=== PATIENT | male | born 1925 | race Caucasian/White ===

== ENCOUNTER → 2016-05-03 | Outpatient (CLI) | payer MEDICARE ==
[~2016-05-03] MED LIST: AMOXIL (BID DO875 MG PO; ASPIRIN LO-DOSE81 MG PO; CEFTIN500 MG PO; COLACE100 MG PO; COLON HELPER PO; COREG6.25 MG PO; COUMADIN ** IA5 MG PO; DELTASONE20 MG PO; FUROSEMIDE20 MG PO; K-TAB 10MEQ10 MEQ PO; NITROSTAT0.4 MG PO; PERCOCET 5-3251 EACH PO; PRESERVISION A1 EACH PO; SENOKOT S (S1 TABLET PO; SPIRIVA HANDIHA1 KIT INH; SYMBICORT 16010.2 GM INH; TYLENOL325 MG PO; ZOCOR20 MG PO
--- NOTE | ~2016-05-03 | PUL ---
PATIENT'S NAME: TERE ORTIZ [facility] AGE: 89 Y [address] ROOM: [place] [address] LOCATION: [facility] ADMIT DATE: 05/03/2016 Pulmonary DISCHARGE DATE: FAMILY PHYSICIAN: PHYSICIAN, NO ATTENDING PHYSICIAN: FRANNIE CANALES NAME OF PROCEDURE: Sleep study DATE OF PROCEDURE: 05/03/16 TECH: PAT Gore TEST #: [facility]# [id number] MEDICAL HISTORY: The patient is an 89-year-old gentleman with daytime sleepiness and snoring. SLEEP STAGE SUMMARY: The patient was studied for 513 minutes of which he slept 353 minutes. He fell asleep in 3 minutes and slept for 68% of the night. Sleep architecture revealed a decline in slow wave sleep. RESPIRATORY SUMMARY: Oxygen saturations ranged from 65-94%. Prior to initiating CPAP there were 84 hypopneas, no apneas for an apnea/hypopnea index elevated at 35 events per hour. CPAP was initiated and titrated to 12 cm with good control of the respiratory events. EKG SUMMARY: No dysrhythmias were noted. LIMB MOVEMENT SUMMARY: Occasional periodic limb movements were noted. These do not appear to be clinically relevant as they resolved with control of the sleep apnea. ASSESSMENT: Obstructive sleep apnea responsive to CPAP at 12 cm. PLAN: Suggest CPAP at 12 cm. Patient will receive results from the ordering provider. MD MAKAYLA HOGAN/ PATIENT'S NAME: TERE ORTIZ [facility] AGE: 89 Y [address] ROOM: [place] [id number] LOCATION: [facility] ADMIT DATE: 05/03/2016 Pulmonary DISCHARGE DATE: FAMILY PHYSICIAN: PHYSICIAN, NO ATTENDING PHYSICIAN: FRANNIE CANALES /[id number] dtt: 05/22/16 1017 , Yunior Rodriguez dtd: 05/05/16 1318
== END | disposition disaster alternative care site (69) ==
LOC: GSLP 19:48
DX: G47.10 Hypersomnia, unspecified (principal); G47.33 Obstructive sleep apnea (adult) (pediatric)

== ENCOUNTER → 2016-05-13 | Outpatient (CLI) | payer MEDICARE ==
--- NOTE | ~2016-05-13 | PUL ---
PATIENT'S NAME: TERE ORTIZ [facility] AGE: 89 Y [address] ROOM: [place] [address] LOCATION: [facility] ADMIT DATE: 05/13/2016 Pulmonary DISCHARGE DATE: FAMILY PHYSICIAN: PHYSICIAN, NO ATTENDING PHYSICIAN: FRANNIE CANALES NAME OF PROCEDURE: Pulmonary Function Test DATE OF PROCEDURE: May 13, 2016 TECH: ATripe, [employer] REASON FOR EXAM: Asthma RESULTS: 1. FVC was 1.91 liters which is 58% of predicted and low, FEV1 was 1.07 liters which is 48% of predicted and low, and FEV1/FVC was 56% and low. The flow volume curve revealed significant airflow limitation. After bronchodilator administration FVC increased to 2.36 liters which is a 23% increase and FEV1 increased to 1.22 liters which is a 14% increase. FEV1/FVC was 52%. 2. DLCO was 10.5 with an adjusted DLCO of 11 which is 60% of predicted and normal. 3. Total lung capacity was 5.29 liters which is 92% of predicted and normal, and residual volume was 3.37 liters which is 124% of predicted and normal. PHYSICIAN INTERPRETATION: The patient has severe airflow limitation with a significant bronchodilator response. His diffusion capacity is normal. There is no evidence of restrictive lung disease. MD BRIDGET MORE/lillian /[id number] dtt: 05/18/16 0915 , FRANNIE CANALES dtd: 05/14/16 1405
== END | disposition disaster alternative care site (69) ==
LOC: GRTH 12:33
DX: J45.909 Unspecified asthma, uncomplicated (principal)

== ENCOUNTER 2016-06-03 14:23 | Inpatient (IN) | payer OTHER, MEDICARE ==
[~2016-06-03] VITALS: Ht 172.7 cm; Wt 96.0 kg
--- NOTE | ~2016-06-03 | DS ---
PATIENT'S NAME: TERE ORTIZ [facility] AGE: 89 Y [address] ROOM: [place] [address] LOCATION: [facility] ADMIT DATE: 06/03/2016 Discharge Summary DISCHARGE DATE: 06/06/2016 FAMILY PHYSICIAN: Aicha Camargo MD ATTENDING PHYSICIAN: Maru MULLINS PRINCIPAL DIAGNOSIS: 1. Acute on chronic hypoxic respiratory failure. 2. Community-acquired pneumonia. 3. Chronic obstructive pulmonary disease exacerbation. 4. Paroxysmal atrial fibrillation, on long-term anticoagulation. 5. Hypertension, essential. 6. Coronary artery disease, status post coronary artery bypass grafting as well as stenting. 7. Obstructive sleep apnea. HOSPITAL COURSE: An 89-year-old very pleasant gentleman was admitted to the [facility] with fever and cough. Initial evaluation showed leukocytosis. CAT scan of the chest was done to rule out any pulmonary embolism. It did show right upper lobe infiltrate. He was treated with ceftriaxone as well as azithromycin. He was also treated for COPD exacerbation with DuoNeb and prednisone. By the end of the discharge, the patient improved significantly without requiring oxygen. He ambulated well with the PT and the OT. There was concern regarding his safety at home. PT and OT recommended Home Health Care, which we arranged for him. He never smoked in his life, but he saw Dr. Alonso in the past, and he is on Symbicort. I will recommend followup with Dr. Alonso in 1 week. He will be discharged home on Augmentin for 5 more days. DISCHARGE MEDICATIONS: 1. Aspirin 81 mg p.o. every day. 2. Coreg 6.25 mg p.o. twice daily. 3. Prednisone 80 mg p.o. once daily for 5 days. 4. Simvastatin 20 mg p.o. every evening. 5. Coumadin 5 mg p.o. 6 days a week. 6. Coumadin 2.5 mg p.o. on the 7th day. 7. Furosemide 20 mg p.o. every day p.r.n. for leg swelling. 8. Potassium chloride 10 mEq p.o. every day p.r.n. for swelling when taking Lasix. 9. Multivitamin 1 tablet daily. 10. Nitroglycerin 0.4 mg p.o. q.5 minutes p.r.n. for chest pain. Call ER or 911 if the pain does not resolve. 11. Symbicort 2 puffs inhalation twice daily. 12. New medications include:. a. Augmentin 875/125 mg p.o. b.i.d. for 5 days. PATIENT'S NAME: TERE ORTIZ [facility] AGE: 89 Y [address] ROOM: [place] [address] LOCATION: [facility] ADMIT DATE: 06/03/2016 Discharge Summary DISCHARGE DATE: 06/06/2016 FAMILY PHYSICIAN: Aicha Camargo MD ATTENDING PHYSICIAN: Maru MULLINS Prednisone 80 mg p.o. daily for 5 days. c. Spiriva 18 mcg 1 capsule inhalation once daily, 30-day supply. ACTIVITY: As tolerated. DIET: Low-sodium diet. FOLLOWUP: Follow up with Dr. Alonso in 1 week. MD PAULO VOSS/patrick /[id number] d: 06/07/16 0308 t: 06/07/16 1508, DISCHARGE SUMMARY
--- NOTE | ~2016-06-03 | CON ---
PATIENT'S NAME: TERE ORTIZ [facility] AGE: 89 Y [address] ROOM: [place] [id number] LOCATION: [facility] ADMIT DATE: 06/03/2016 Consultation DISCHARGE DATE: FAMILY PHYSICIAN: Aicha Camargo MD ATTENDING PHYSICIAN: Maru MULLINS REFERRING PHYSICIAN: REINA Whitfield CHIEF COMPLAINT: Left elbow pain. HISTORY OF PRESENT ILLNESS: I was requested to see this patient for a 5-day history of left elbow pain. It is more medial. He has a history of heart trouble, and he was concerned it might be his heart. He came to the emergency room 4 days ago and found that he had pneumonia. He was short of breath. He had a cough, felt chilled. He has been on IV antibiotics, and the pneumonia is much better, but he still has some pain in the left elbow. It is worse with pushing and pulling. It is medial. Denies numbness or tingling. No history of injury or fracture. ALLERGIES: PENICILLIN, IODINE, DEMEROL, AND MORPHINE. MEDICATIONS: 1. Aspirin. 2. Coreg. 3. Coumadin. 4. Dulera. 5. Norvasc. 6. Rocephin. 7. Zithromax. 8. Zocor. 9. Nitrostat. PAST MEDICAL HISTORY: Hypertension; right hip fracture; chronic anticoagulation due to atrial fibrillation; atherosclerotic heart disease, status post stenting; and COPD. SOCIAL HISTORY: He lives at home with his . No history of smoking or use of drugs or alcohol. He did a lot a welding, did farm work, and has been retired for many years. PAST SURGICAL HISTORY: 1. Appendectomy. 2. Fractured patella. 3. Back surgery. PATIENT'S NAME: TERE ORTIZ [facility] AGE: 89 Y [address] ROOM: [place] [address] LOCATION: [facility] ADMIT DATE: 06/03/2016 Consultation DISCHARGE DATE: FAMILY PHYSICIAN: iAcha Camargo MD ATTENDING PHYSICIAN: Maru MULLINS 4. Nose surgery. 5. Coronary artery bypass x5. 6. Right hip repair in November 2010. REVIEW OF SYSTEMS: Positive for cough and chills, but no recent fever. No dysuria or hematuria. No chest pain or shortness of breath. Does have a cough. No malaise. No dysphoria or auditory or visual hallucinations. PHYSICAL EXAMINATION: GENERAL: He is awake, alert, and oriented x3. Mood and affect appropriate. VITAL SIGNS: Blood pressure 129/69, pulse 61, respirations 15, and temperature 97.5. HEENT: Atraumatic, normocephalic. PERRL, EOMI. TMs clear. Throat clear. NECK: Supple. CHEST: Clear to auscultation. HEART: Regular rhythm. ABDOMEN: Soft and nontender. SKIN: No rashes or warmth. NEUROLOGIC: He is alert and oriented. Sensation and motor function intact to upper and lower extremities. Pulses good. Reflexes equal. MUSCULOSKELETAL: Left arm, shoulder, elbow, and wrist have no warmth or swelling. He is tender at the medial epicondyle of the left elbow. He has some pain with resisted pronation and wrist flexion. His right elbow has no pain or tenderness. DIAGNOSTIC DATA: X-rays of the left elbow, AP, lateral, and obliques, demonstrate joint effusion without fracture, probably related to arthritis. IMPRESSION: 1. Medial epicondylitis, left elbow. 2. Hypertension. 3. Coronary artery disease. 4. History of pneumonia. 5. Hypercholesterolemia. 6. Atrial fibrillation, on Coumadin. PLAN: Symptoms are mild. He can use the elbow as tolerated. Take Tylenol for pain. If it gets worse, an injection could be considered. I told him to come see me if the elbow continues to hurt after he is discharged. PATIENT'S NAME: TERE ORTIZ [facility] AGE: 89 Y [address] ROOM: [address] [place] [address] LOCATION: [facility] ADMIT DATE: 06/03/2016 Consultation DISCHARGE DATE: FAMILY PHYSICIAN: Aicha Camargo MD ATTENDING PHYSICIAN: Maru MULLINS MD YADI OLIVEROS/patrick /[id number] d: 06/05/16 1825 t: 06/12/16 1931, CONSULTATION REPORT
--- NOTE | ~2016-06-03 | HP ---
PATIENT'S NAME: TERE ORTIZ [facility] AGE: 89 Y [address] ROOM: [place] [address] LOCATION: [facility] ADMIT DATE: 06/03/2016 History & Physical DISCHARGE DATE: FAMILY PHYSICIAN: Aicha Camargo MD ATTENDING PHYSICIAN: Maru MULLINS DATE OF SERVICE: CHIEF COMPLAINT: Cough. HISTORY OF PRESENT ILLNESS: The patient is a pleasant 89-year-old gentleman with past medical history of CAD, hypertension, COPD, atrial fibrillation, on Coumadin, who presents here with few days' history of productive cough and generalized weakness. The patient reports that he has been having some productive cough associated with generalized weakness for a couple of days. He reports he has been producing some yellow sputum. He was seen in [facility] on Wednesday and was started on Ceftin. However, his symptoms did not improve and came to our hospital for further evaluation. The patient currently denies fever, chills, abdominal pain, nausea, vomiting, chest pain, and worsening of shortness of breath. The patient also reports of left arm pain. He reports that it worsens on movement. He reports that his pain is mainly in his left elbow. He reports that he has been having this pain for the past two or three days. The patient denies any trauma, history of gout, swelling, pain around his shoulder and hand. He has a history of osteoarthritis. The patient was seen in our emergency department and CT chest shows suspicious for and pneumonia and was started on Levaquin and was admitted to inpatient as he failed outpatient treatment. MEDICAL HISTORY: Coronary artery disease; obstructive sleep apnea; hypertension; COPD; atrial fibrillation, on Coumadin. SURGICAL HISTORY: Knee surgery, back surgery, and CABG. FAMILY HISTORY: Father has emphysema. SOCIAL HISTORY: He is a retired welder tool and die, he has four kids and 12 grandchildren, he lives with his . PATIENT'S NAME: TERE ORTIZ [facility] AGE: 89 Y [address] ROOM: [place] [address] LOCATION: [facility] ADMIT DATE: 06/03/2016 History & Physical DISCHARGE DATE: FAMILY PHYSICIAN: Aicha Camargo MD ATTENDING PHYSICIAN: Maru MULLINS MEDICATIONS: 1. Simvastatin. 2. Coumadin. 3. Potassium. 4. Coreg. 5. Lasix as needed. REVIEW OF SYSTEMS: All systems have been reviewed and are negative except for what is mentioned in the HPI. PHYSICAL EXAMINATION: VITAL SIGNS: Temperature 99.5, blood pressure 175/81, heart rate of 70, on 2 L saturating 100%. GENERAL APPEARANCE: The patient is alert and awake, in no acute distress. HEAD: Normocephalic, atraumatic. EYES: Extraocular muscles intact. Sclerae nonicteric. THROAT: Moist oral mucosa. NECK: No JVD. CHEST: Clear to auscultation bilaterally. HEART: Regular rate and rhythm. Grade 1 systolic murmur heard. ABDOMEN: Soft, nontender, and nondistended. Bowel sounds present. SKIN: Warm to touch. HYDRODYNAMICIST: Alert and oriented. Motor and sensory grossly intact. MUSCULOSKELETAL: Left elbow pain on passive and active range of motion. Left elbow warm to touch compared to right elbow. Mild subcutaneous fluctuation appreciated. No drainage expressed per needle aspiration. LABORATORY DATA: White blood cell count of 11.1, hemoglobin of 11.4. A pH of 7.4. Troponin 0.04. INR of 2.16. Sodium of 140, potassium of 4, BUN of 12, creatinine of 1, blood glucose of 112. CT chest with contrast done in the ED shows patchy interstitial opacity in the right upper lobe, laterally ablating major fissures consistent with pneumonia. No signs of PE. ASSESSMENT AND PLAN: The patient is an 89-year-old gentleman with past medical history of CAD, status post CABG, hypertension, COPD, and atrial fibrillation, on Coumadin, who presents here with community pneumonia and left elbow pain. 1. Community-acquired pneumonia. CT shows right upper pneumonia and lab shows leukocytosis of 11.1. We will admit the patient as an inpatient as the patient has failed outpatient treatment with Ceftin. We will start the patient on azithromycin and Rocephin tomorrow. The patient has already been started on Levaquin. However, we will hold Levaquin as the patient is currently on Coumadin. Blood culture x2, sputum culture, PATIENT'S NAME: TERE ORTIZ [facility] AGE: 89 Y [address] ROOM: [place] [address] LOCATION: [facility] ADMIT DATE: 06/03/2016 History & Physical DISCHARGE DATE: FAMILY PHYSICIAN: Aicha Camargo MD ATTENDING PHYSICIAN: Maru MULLINS urine strep antigen and Legionella antigen pending. 2. Left elbow pain. The patient is presenting with few days history of left elbow pain. On physical examination, the patient has active and passive pain on range of motion test. Also his left elbow is warm to touch compared to the right and appears mildly swollen compared to the right. Around the olecranon region, there was mild subcutaneous fluctuation. No drainage was expressed on subcutaneous needle aspiration. We will acquire x-ray of left elbow. We will consult Orthopedics for their input. Since this is an acute presentation and pain on range of motion on passive and active with warm to touch, we will evaluate for early septic arthritis. 3. Hypertension. The patient noted to have elevated blood pressure. We will add amlodipine 10 mg on his home medication. 4. Coronary artery disease. Continue aspirin, statin, and Coreg. 5. Atrial fibrillation, currently on Coumadin. INR within normal limits. Pharmacy to dose Coumadin. 6. Generalized weakness. We will acquire PT/OT. Greater than 50 minutes was spent on patient care. Case discussed with Dr. Garcia, Orthopedics. Assessment and plan also discussed with the patient and family. All questions were answered satisfactory. We will admit the patient as an inpatient as he failed outpatient treatment for community- acquired pneumonia and also due to his age of 89 and comorbidities which include coronary artery disease, hypertension, and COPD. MD PHILIP BHATIA/modl /[id number] D: [id number] T: [id number] HISTORY & PHYSICAL
--- NOTE | ~2016-06-03 | ER ---
PATIENT'S NAME: TERE ORTIZ [facility] AGE: 89 Y [address] ROOM: [place] [address] LOCATION: [facility] ADMIT DATE: 06/03/2016 ER/Outpatient Report DISCHARGE DATE: FAMILY PHYSICIAN: Aicha Camargo MD ATTENDING PHYSICIAN: Maru METZ Time of Arrival: 1425 hours. Time of Evaluation: 1425 hours. CHIEF COMPLAINT: Left arm pain. HISTORY OF PRESENT ILLNESS: The patient states he has been sick for the past week with a cough. He reports he was seen at [facility] on Wednesday, saw Dr. Aicha Camargo at that time. He got started on Ceftin. He states he is having pain in his left arm and that has been going on for 2 days also. Initially, it was just with movement, now it seems to be more constant and that had him nervous that it could be related to his heart. He has had coronary heart issues in the past. He states that Dr. Aicha Camargo said he had pneumonia like symptoms. He reports his cough is being nonproductive. States his chest hurts with the coughing. He denies any trauma to his arm. He has not been nauseated, has not been vomiting, has not felt diaphoretic. ALLERGIES: ON HIS CHART AND WERE REVIEWED BY ME. MEDICATIONS: On his chart and were reviewed by me. PAST MEDICAL HISTORY: Includes hypertension, right hip fracture, chronic anticoagulation due to atrial fibrillation, arthrosclerotic heart disease, COPD. PAST SURGICAL HISTORY: Include appendectomy; broken knee cap, knee joint x2; back surgery; nose surgery; coronary artery bypass x5 in December 2009; hip repair in November 2010. SOCIAL HISTORY: The patient lives at home with his . States he never smoked. Denies use of drugs and alcohol. REVIEW OF SYSTEMS: All negative other than those mentioned in the HPI. PATIENT'S NAME: TERE ORTIZ [facility] AGE: 89 Y [address] ROOM: [address] [place] [address] LOCATION: [facility] ADMIT DATE: 06/03/2016 ER/Outpatient Report DISCHARGE DATE: FAMILY PHYSICIAN: Aicha Camargo MD ATTENDING PHYSICIAN: Maru METZ PHYSICAL EXAMINATION: VITAL SIGNS: He weighed 96.5 kg. Blood pressure initially was 209/94, pulse is 70, respirations 24, temperature of 99.5, O2 saturation was 92% on room air. GENERAL: He is awake, alert, and oriented x4. SKIN: Radium, warm, and dry. RESPIRATIONS: Even and nonlabored. Lung sounds are coarse throughout especially in the left lower lobe. No wheezing is noted. HEART: Regular rate and rhythm. Monitor shows a sinus rhythm. ABDOMEN: Soft, nondistended. Bowel sounds are present. EXTREMITIES: He came in per wheelchair, but was able to get onto a cart with two assist. He does have some peripheral edema, 2+. Positive peripheral pulses. EMERGENCY DEPARTMENT COURSE: Saline lock was initiated. LABORATORY DATA AND X-RAY: Lab work was drawn. CBC shows a white count of 11.1. Chem panel was within normal limits. His BUN was 12 with a creatinine of 1 and GFR of greater than 20. CPK was 229, CK-MB was 2.7, and troponin was negative. Venous pH was 7.44, his CO2 was 26. Lactate was 1. INR is 2.6. D-dimer is elevated at 1.18. Procalcitonin is normal. ProBNP was 435. EKG shows sinus rhythm with PAC. Chest x-ray was completed, reviewed with Dr. Persaud. Questionable infiltrates on the lateral view with the D-dimer being elevated. We did do a CT scan, PE protocol. Radiologist reports that CT scan is negative for PE, but he does have a right upper lobe pneumonia. The patient was assisted to the bathroom. He did urinate, and UA was obtained, bacteria is negative, leukocytes were positive at 100 with white blood cells 2-5. The patient tolerated activity without increased respiratory distress. Vital signs were monitored throughout the stay. We did have to start him on some O2 at 2 L. Keep his sats at 90. His blood pressure did come down nicely to 175/81. Dr. Aicha Camargo was contacted regarding the patient, she states Wednesday was only time she had ever seen him that he was routinely a patient at the [facility]. Dr. Metz was contacted regarding the patient. The patient will be placed inpatient for the hospitalist care. IMPRESSION: Pneumonia. PLAN: Admit to inpatient status for continuation of care. Levaquin 750 mg IV was started as the patient is allergic to penicillin. The patient and his family are aware of plan of care. PATIENT'S NAME: TERE ORTIZ [facility] AGE: 89 Y [address] ROOM: [place] [address] LOCATION: [facility] ADMIT DATE: 06/03/2016 ER/Outpatient Report DISCHARGE DATE: FAMILY PHYSICIAN: Aicha Camargo MD ATTENDING PHYSICIAN: Maru METZ KATERINE CLARKE APRN FOR MD DK ELLIS/modl /[id number] d: 06/04/16 0024 t: 06/10/16 0608, OUTPATIENT REPORT
[~2016-06-03 14:23] MED LIST changes: -AMOXIL (BID DO875 MG PO; -CEFTIN500 MG PO; -DELTASONE20 MG PO; -SPIRIVA HANDIHA1 KIT INH; -SYMBICORT 16010.2 GM INH
[2016-06-03 15:19] LABS: BASOPHIL # 0.1 K/uL (0.0-0.2); BASOPHIL % 0.5 %; EOSINOPHIL # 0.2 K/uL (0.0-0.5); HEMATOCRIT 37.2 % (33.0-50.0); HEMOGLOBIN 11.4 g/dL (11.0-16.0); IMMATURE GRANULOCYTE # 0.1 K/uL (0.0-0.3); IMMATURE GRANULOCYTE % 0.5 %; LYMPHOCYTE # 1.7 K/uL (0.8-4.0); LYMPHOCYTE % 15.1 %; MCH 26.4 pg (27.0-34.0); MCHC 30.6 gm/dL (32.0-36.5); MCV 86.1 fl (83.0-98.0); MONOCYTE % 9.1 %; MPV 10.6 fl (9.4-12.4); NEUTROPHIL # (ANC) 8.1 K/uL (1.4-9.0); NEUTROPHIL % 72.8 %; NRBC % 0 /100WBC (0-0.00); PLATELET COUNT 410 K/uL (150-450); RBC 4.32 M/uL (3.50-5.50); RDW-CV 14.1 % (11.9-14.6); WBC 11.1 K/uL (4.0-11.0)
[2016-06-03 15:28] LABS: INR - (THERAPEUTIC) 2.16 (0.92-1.07); PROTIME 22.9 SECONDS (9.8-11.4)
[2016-06-03 15:42] LABS: ALBUMIN 2.6 gm/dL (3.5-5.0); ALK PHOS 52 IU/L (33-138); ALT 29 IU/L (12-78); AST 21 IU/L (10-40); BLOOD UREA NITROGEN 12 mg/dL (6-24); CALCIUM 8.5 mg/dL (8.5-10.5); CHLORIDE 106 mMol/L (96-110); CO2 26 mMol/L (22-32); CPK 229 IU/L (35-332); ESTIMATED GFR (MDRD EQUATION) > 60; SODIUM 140 mMol/L (135-145); TOTAL BILIRUBIN 0.3 mg/dL (0.0-1.5)
[2016-06-03 17:54] LABS: BILIRUBIN URINE NEGATIVE (NEGATIVE); BLOOD URINE 25 /UL (NEGATIVE); COLOR URINE STRAW (YELLOW); GLUCOSE URINE NEGATIVE (NEGATIVE); KETONE URINE NEGATIVE (NEGATIVE); LEUKOCYTES URINE 100 /UL (NEGATIVE); NITRITE URINE NEGATIVE (NEGATIVE); PROTEIN URINE NEGATIVE (NEGATIVE); SPEC GRAVITY URINE 1.005 (1.003-1.035); TURBIDITY URINE CLEAR (CLEAR); UROBILINOGEN URINE NORMAL (NORMAL)
[2016-06-03 18:16] LABS: EPITHELIAL URINE 0-2 #/HPF (NEGATIVE)
[2016-06-03 18:17] LABS: BACTERIA URINE NEGATIVE (NEGATIVE)
[2016-06-03] MEDS ORDERED: CEFTIN500 MG PO (20:12)
[2016-06-03] MEDS ORDERED: SYMBICORT 16010.2 GM INH (20:26)
--- NOTE | 2016-06-04 00:37 | NUR ---
Patient admitted from [facility] ER for R)upper lobe pneumonia. Patient recently seen at [facility] for cough and congestion, was prescribed ceftin BID. Patient continued to not feel well after 2 days and family called the clinic. While waiting for a call back patient had a severe coughing spell where he was unable to catch his breath or cough up sputum. This prompted his family to bring him to the ER. IV antibiotics initated in ER. Orders completed in ER. Patient transfered to floor via WC, ambulates 1 assist with walker. VSS on RA. Placed on 2L/NC per home dose. consulted for L)elbow pain. ER MD aspirated in ER.
--- NOTE | 2016-06-04 04:11 | NUR ---
PATIENT RESTS QUIETLY IN BED MOST OF NIGHT. AMBULATES WITH 1 ASSIST AND USE OF GAIT BELT AND WALKER. STEADY BUT WEAK AND BECOMES SOB WITH AUDIBLE WHEEZES. COARSE THROUGHOUT. ON 2L PER N/C AND SATS HAVE REMAINED ABOVE 90%. CALM AND COOPERATIVE WITH CARES. A&O THROUGHOUT SHIFT. PATIENT VSS. NSR. L) FOREARM IVSL 20G. OTHRO CONSULT AND XRAY TAKEN ON L) ELBOW.
[2016-06-04 04:21] LABS: INR - (THERAPEUTIC) 2.51 (0.92-1.07); PROTIME 26.6 SECONDS (9.8-11.4)
--- NOTE | 2016-06-04 13:22 | NUR ---
Introduced self and care management services to patient. Lives in [place] with . Denies concerns about going home on discharge, if needs more help at home then his daughter would come up and assist them, but doesn't anticipate that. Has O2 he wears at night at home, and has all the DME he needs at home. Denies needs. Will follow.
[2016-06-04 13:33] LABS: BASOPHIL % 0.2 %; HEMATOCRIT 39.2 % (33.0-50.0); HEMOGLOBIN 12.5 g/dL (11.0-16.0); IMMATURE GRANULOCYTE # 0.1 K/uL (0.0-0.3); IMMATURE GRANULOCYTE % 0.7 %; LYMPHOCYTE # 1.4 K/uL (0.8-4.0); LYMPHOCYTE % 7.1 %; MCH 27.1 pg (27.0-34.0); MCHC 31.9 gm/dL (32.0-36.5); MONOCYTE % 4.9 %; MPV 10.2 fl (9.4-12.4); NEUTROPHIL # (ANC) 16.8 K/uL (1.4-9.0); NEUTROPHIL % 87.1 %; NRBC % 0 /100WBC (0-0.00); PLATELET COUNT 440 K/uL (150-450); RBC 4.61 M/uL (3.50-5.50)
[2016-06-04 13:34] LABS: WBC 19.3 K/uL (4.0-11.0)
--- NOTE | 2016-06-04 17:42 | NUR ---
Significant Event: Patient A/O x 3. Up with 1A, gaitbelt, and walker. VSS on 1-3 L. Weaned to 1L. Lung sounds coarse with expiratory wheezes at times. Sputum culture sent. Denies pain throughout the day. Left elbow edematous, but denies pain. LFA PIV SL. Continues on IV antibiotics. Follow up: Continue as per plan of care.
[2016-06-05 03:03] LABS: BASOPHIL % 0.1 %; HEMATOCRIT 37.8 % (33.0-50.0); IMMATURE GRANULOCYTE # 0.1 K/uL (0.0-0.3); IMMATURE GRANULOCYTE % 0.5 %; LYMPHOCYTE # 1.9 K/uL (0.8-4.0); LYMPHOCYTE % 10.9 %; MCH 27.1 pg (27.0-34.0); MCHC 31.7 gm/dL (32.0-36.5); MCV 85.3 fl (83.0-98.0); MONOCYTE % 5.6 %; MPV 10.2 fl (9.4-12.4); NEUTROPHIL # (ANC) 14.3 K/uL (1.4-9.0); NEUTROPHIL % 82.9 %; NRBC % 0 /100WBC (0-0.00); PLATELET COUNT 408 K/uL (150-450); RBC 4.43 M/uL (3.50-5.50); RDW-CV 14.1 % (11.9-14.6)
[2016-06-05 03:04] LABS: WBC 17.2 K/uL (4.0-11.0)
[2016-06-05 03:14] LABS: INR - (THERAPEUTIC) 3.14 (0.92-1.07); PROTIME 33.4 SECONDS (9.8-11.4)
[2016-06-05 03:15] LABS: ANION GAP 11.4 (10.0-19.0); BLOOD UREA NITROGEN 22 mg/dL (6-24); CALCIUM 8.9 mg/dL (8.5-10.5); CHLORIDE 107 mMol/L (96-110); CO2 29 mMol/L (22-32); ESTIMATED GFR (MDRD EQUATION) > 60; POTASSIUM 4.4 mMol/L (3.7-5.1); SODIUM 143 mMol/L (135-145)
--- NOTE | 2016-06-05 04:39 | NUR ---
Patient is A&Ox3 this shift. Cooperative with cares. Lung sounds improving, still coarse but only wheezing on exertion. Patient has sm. BM this shift and voids without difficulty. Up with one assist and use of walker. Still tires with activity but improving. To con't with antibiotics. NOC shift 02 at 2L. Wears 3L at home at [facility]. INR this AM 3.14. White count is trending down.
--- NOTE | 2016-06-05 15:45 | NUR ---
Received consult to talk with pt and family about assisted living. Talked with patient, and 4 children (2 children in laws) at bedside. They report they are discussing assisted living for the future and aware they do respite as well but at this time they have decided pt can go home on discharge, would like HH to follow him at home, [facility]. I put face to face sheet on chart with note for physician to fill out and sign, called HH referral to [facility] [phone] and faxed referral to them at [phone], talked with Sarah at [facility]. Put fax number on chart for nurse to fax dc orders and face to face to them and if pt dc over weekend then [facility] HH will call pt on Wednesday to set up time to visit next week. Pt and family agreeable to this plan. Will follow.
--- NOTE | 2016-06-05 17:30 | NUR ---
Significant Events: Patient is A&Ox3 and cooperative with cares. Patient is a stand-by assist with partial weight-bearing on right leg. Vital Signs: HR 60's, SBP 120-160's. Patient on 1L O2, with expiratory wheezes and coarse lung sounds noted throughout. Patient voided x6, with no BM. Patient has edema to bilateral lower legs, ankles, and feet, with more edema noted on the right leg. Edema also noted in the left elbow. IV to left posterior forearm, SL. Patient and family spoke with lawn care specialist today and plans to go home with home health. Continue per plan of care.
--- NOTE | 2016-06-06 04:34 | NUR ---
Significant Event:No changes in assessments. Patient transfers as a SBA to 1 assist with walker. Patient on and off 1L during the day when awake and 3L/NC at night per home dose. Lung sounds clear/diminished with productive cough noted. Patient states that he is feeling much better and is ok with going home with home health and later to [facility]. Follow up:Discharge to with . Discharge medications on the chart for MD.
[2016-06-06 06:51] LABS: BASOPHIL % 0.1 %; HEMATOCRIT 42.7 % (33.0-50.0); HEMOGLOBIN 13.5 g/dL (11.0-16.0); IMMATURE GRANULOCYTE # 0.1 K/uL (0.0-0.3); IMMATURE GRANULOCYTE % 0.9 %; LYMPHOCYTE # 1.5 K/uL (0.8-4.0); LYMPHOCYTE % 11.5 %; MCH 26.6 pg (27.0-34.0); MCHC 31.6 gm/dL (32.0-36.5); MCV 84.2 fl (83.0-98.0); MONOCYTE # 0.5 K/uL (0.0-1.0); MONOCYTE % 3.5 %; MPV 10.3 fl (9.4-12.4); NEUTROPHIL # (ANC) 11.2 K/uL (1.4-9.0); NRBC % 0 /100WBC (0-0.00); RBC 5.07 M/uL (3.50-5.50); RDW-CV 14.2 % (11.9-14.6); WBC 13.3 K/uL (4.0-11.0)
[2016-06-06 06:52] LABS: PLATELET COUNT 528 K/uL (150-450)
[2016-06-06 07:12] LABS: ANION GAP 11.6 (10.0-19.0); BLOOD UREA NITROGEN 27 mg/dL (6-24); CALCIUM 9.2 mg/dL (8.5-10.5); CHLORIDE 103 mMol/L (96-110); CO2 30 mMol/L (22-32); ESTIMATED GFR (MDRD EQUATION) > 60; POTASSIUM 4.6 mMol/L (3.7-5.1); SODIUM 140 mMol/L (135-145)
[2016-06-06 07:14] LABS: INR - (THERAPEUTIC) 2.7 (0.92-1.07); PROTIME 28.6 SECONDS (9.8-11.4)
[2016-06-06] MEDS ORDERED: DELTASONE20 MG PO (11:02)
[2016-06-06] MEDS ORDERED: SPIRIVA HANDIHA1 KIT INH (11:07)
[2016-06-06] MEDS ORDERED: AMOXIL (BID DO875 MG PO (11:09)
--- NOTE | 2016-06-06 14:08 | NUR ---
Patient discharged to home with daughter and . All present verblized understanding of discharge teaching. Krames new medications and preventing pnemonia teaching given. Patients VSS on room air. Pnemonia vaccine up to date.
--- NOTE | 2016-06-08 09:56 | NUR ---
Called [facility] and double checked that they did receive face to face and dc orders when pt dc over weekend, they did and will contact him to set up time to admit to HH.
== END 2016-06-06 14:11 | disposition home health service (06) | DRG 193 ==
LOC: GMED 14:23 → GPCU 18:26
PROVIDERS: Emergency Medicine; Internal Medicine; Nurse Practitioner Family; ADMIT Internal Medicine
DX: J18.9 Pneumonia, unspecified organism (principal); J96.21 Acute and chronic respiratory failure with hypoxia; J44.1 Chronic obstructive pulmonary disease with (acute) exacerbation; D72.829 Elevated white blood cell count, unspecified; G47.33 Obstructive sleep apnea (adult) (pediatric); I10 Essential (primary) hypertension; I25.10 Atherosclerotic heart disease of native coronary artery without angina pectoris; I48.0 Paroxysmal atrial fibrillation; Z79.01 Long term (current) use of anticoagulants; M25.522 Pain in left elbow; Z95.1 Presence of aortocoronary bypass graft; E78.00 Pure hypercholesterolemia, unspecified; M77.02 Medial epicondylitis, left elbow
CPT/HCPCS: J0456; J0696; J1200; J1956; J2930; J7040; J7050; J7512; Q9967

== ENCOUNTER 2016-06-08 07:26 | Emergency (ER) | payer MEDICARE, OTHER ==
--- NOTE | ~2016-06-08 | ER ---
PATIENT'S NAME: TERE ORTIZ [facility] AGE: 89 Y [address] ROOM: [place] [address] LOCATION: [facility] ADMIT DATE: 06/08/2016 ER/Outpatient Report DISCHARGE DATE: FAMILY PHYSICIAN: Junie Hebert ATTENDING PHYSICIAN: Darian Persaud Admission date and time documented on the medical record. I saw the patient at 0748 hours. CHIEF COMPLAINT: Constipation. HISTORY OF PRESENT ILLNESS: The patient is 89-year-old male, who comes in feeling constipated like he has an impaction. The patient normally has about 2 bowel movements today. He had a small one yesterday. Desires enema. Recently got out of the hospital with pneumonia. HOME MEDICATIONS: See attached medication list. ALLERGIES: PENICILLIN, MORPHINE, SULFATE, DEMEROL, AND IODINE. SOCIAL HISTORY: Nonsmoker, nondrinker. SIGNIFICANT PAST MEDICAL HISTORY: Atherosclerotic ischemic heart disease, coronary artery disease, obstructive sleep apnea, paroxysmal atrial fibrillation, frequent falls, chronic hypoxic respiratory failure, hypertension, degenerative joint disease, degenerative osteoarthritis, chronic anticoagulation with Coumadin, dyslipidemia. OPERATIONS: Open reduction and internal fixation, right hip fracture; five-vessel coronary bypass graft; appendectomy; bilateral total knee arthroplasty. ROS: All systems reviewed by me are negative with the exception of those discussed in history of present illness. PHYSICAL EXAMINATION: VITAL SIGNS: Temperature 96, tympanic; pulse 69; respirations 24; blood pressure 182/87; O2 saturation on room air is 94%. HEENT: Negative. PATIENT'S NAME: TERE ORTIZ [facility] AGE: 89 Y [address] ROOM: [place] [address] LOCATION: [facility] ADMIT DATE: 06/08/2016 ER/Outpatient Report DISCHARGE DATE: FAMILY PHYSICIAN: Junie Hebert ATTENDING PHYSICIAN: Darian Persaud LUNGS: Clear. HEART: Regular. ABDOMEN: Soft, nontender. Active bowel tones. No organomegaly or abnormal masses palpable. No CVA tenderness. EXTREMITIES: Intact. NEUROVASCULAR: Intact. SKIN: Clear. LABORATORY DATA: KUB shows constipation, small impaction. We did give the patient Fleet Enema. He was unable to hold the enema very long. Did give him 2 Dulcolax tabs orally here in the emergency department. IMPRESSION: Constipation with mild impaction. PLAN: The patient dismissed home. Observation. Activity as tolerated. Continue present home medications and care. MiraLAX 17 g in 8 ounces of water daily for 7 days. Follow up with personal physician in 1 to 2 days or as needed. Discussion ensued with the patient concerning my findings and recommendations, he understands. MD ZARA ELLIS/modl /[id number] d: 06/08/16927 t: 06/09/16607, OUTPATIENT REPORT
[~2016-06-08 07:26] MED LIST changes: +AMOXIL (BID DO875 MG PO; +CEFTIN500 MG PO; +DELTASONE20 MG PO; +SPIRIVA HANDIHA1 KIT INH; +SYMBICORT 16010.2 GM INH
== END 2016-06-08 09:27 | disposition disaster alternative care site (69) ==
LOC: GMED 07:26
DX: K59.00 Constipation, unspecified (principal); I25.10 Atherosclerotic heart disease of native coronary artery without angina pectoris; I48.0 Paroxysmal atrial fibrillation; I10 Essential (primary) hypertension; E78.5 Hyperlipidemia, unspecified; M19.90 Unspecified osteoarthritis, unspecified site; J96.11 Chronic respiratory failure with hypoxia; Z90.49 Acquired absence of other specified parts of digestive tract; Z88.0 Allergy status to penicillin; Z88.8 Allergy status to other drugs, medicaments and biological substances; Z88.2 Allergy status to sulfonamides